=== PATIENT | male | born 1955 | race Caucasian/White ===

== ENCOUNTER → 2016-06-05 | Outpatient (CLI) | payer OTHER | END | disposition home or self-care (01) | LOC: MW.LAB 08:48 | PROVIDERS: ATTEND Nurse Practitioner | DX: J18.9 Pneumonia, unspecified organism (principal); R09.89 Other specified symptoms and signs involving the circulatory and respiratory systems | CPT/HCPCS: 87015; 87102; 87116; 87118; 87149; 87206 ==